=== PATIENT | male | born 1950 | race American Indian/Alaskan Native ===

== ENCOUNTER 2017-03-26 10:17 | Outpatient (CLI) | payer MEDICARE ==
[2017-03-26] MEDS ORDERED: XYLOCAINE TOPICAL 4% TP ONE ×2 (10:56→11:32)
== END 2017-03-26 10:18 | disposition home or self-care (01) ==
LOC: WOUND 10:17
PROVIDERS: ATTEND Surgery
DX: E11.622 Type 2 diabetes mellitus with other skin ulcer (principal); L97.821 Non-pressure chronic ulcer of other part of left lower leg limited to breakdown of skin; L97.811 Non-pressure chronic ulcer of other part of right lower leg limited to breakdown of skin; I25.10 Atherosclerotic heart disease of native coronary artery without angina pectoris; I25.2 Old myocardial infarction; M19.90 Unspecified osteoarthritis, unspecified site; I10 Essential (primary) hypertension; Z87.891 Personal history of nicotine dependence; Z86.73 Personal history of transient ischemic attack (TIA), and cerebral infarction without residual deficits; Z72.89 Other problems related to lifestyle
CPT/HCPCS: 11042; G0463

== ENCOUNTER 2017-04-02 10:58 | Outpatient (CLI) | payer MEDICARE ==
[2017-04-02] MEDS ORDERED: XYLOCAINE TOPICAL 4% TP ONE (11:52)
== END 2017-04-02 10:59 | disposition home or self-care (01) ==
LOC: WOUND 10:58
PROVIDERS: ATTEND Surgery
DX: E11.622 Type 2 diabetes mellitus with other skin ulcer (principal); L97.222 Non-pressure chronic ulcer of left calf with fat layer exposed; I25.10 Atherosclerotic heart disease of native coronary artery without angina pectoris; I25.2 Old myocardial infarction; M19.90 Unspecified osteoarthritis, unspecified site; I10 Essential (primary) hypertension; G81.90 Hemiplegia, unspecified affecting unspecified side; Z86.73 Personal history of transient ischemic attack (TIA), and cerebral infarction without residual deficits; Z87.891 Personal history of nicotine dependence; Z72.89 Other problems related to lifestyle

== ENCOUNTER 2017-04-09 11:24 | Outpatient (CLI) | payer MEDICARE ==
[2017-04-09] MEDS ORDERED: XYLOCAINE TOPICAL 4% TP SCH (12:39)
== END 2017-04-09 11:25 | disposition home or self-care (01) ==
LOC: WOUND 11:24
PROVIDERS: ATTEND Surgery
DX: E11.622 Type 2 diabetes mellitus with other skin ulcer (principal); L97.222 Non-pressure chronic ulcer of left calf with fat layer exposed; L97.811 Non-pressure chronic ulcer of other part of right lower leg limited to breakdown of skin; I10 Essential (primary) hypertension; I25.10 Atherosclerotic heart disease of native coronary artery without angina pectoris; I25.2 Old myocardial infarction; Z86.73 Personal history of transient ischemic attack (TIA), and cerebral infarction without residual deficits; M19.90 Unspecified osteoarthritis, unspecified site; Z87.891 Personal history of nicotine dependence

== ENCOUNTER 2017-04-16 10:41 | Outpatient (CLI) | payer MEDICARE ==
[2017-04-16] MEDS ORDERED: XYLOCAINE TOPICAL 4% TP ONE (11:40)
== END 2017-04-16 10:42 | disposition home or self-care (01) ==
LOC: WOUND 10:41
PROVIDERS: ATTEND Surgery
DX: E11.622 Type 2 diabetes mellitus with other skin ulcer (principal); L97.821 Non-pressure chronic ulcer of other part of left lower leg limited to breakdown of skin; L97.811 Non-pressure chronic ulcer of other part of right lower leg limited to breakdown of skin; I25.10 Atherosclerotic heart disease of native coronary artery without angina pectoris; I25.2 Old myocardial infarction; M19.90 Unspecified osteoarthritis, unspecified site; G81.90 Hemiplegia, unspecified affecting unspecified side; I10 Essential (primary) hypertension; Z86.73 Personal history of transient ischemic attack (TIA), and cerebral infarction without residual deficits; Z87.891 Personal history of nicotine dependence; Z72.89 Other problems related to lifestyle

== ENCOUNTER 2017-04-23 11:09 | Outpatient (CLI) | payer MEDICARE ==
[2017-04-23] MEDS ORDERED: XYLOCAINE TOPICAL 4% TP ONE (11:21)
== END 2017-04-23 11:10 | disposition home or self-care (01) ==
LOC: WOUND 11:09
PROVIDERS: ATTEND Surgery
DX: E11.622 Type 2 diabetes mellitus with other skin ulcer (principal); L97.222 Non-pressure chronic ulcer of left calf with fat layer exposed; L97.811 Non-pressure chronic ulcer of other part of right lower leg limited to breakdown of skin; I25.10 Atherosclerotic heart disease of native coronary artery without angina pectoris; I25.2 Old myocardial infarction; M19.90 Unspecified osteoarthritis, unspecified site; G81.90 Hemiplegia, unspecified affecting unspecified side; Z86.73 Personal history of transient ischemic attack (TIA), and cerebral infarction without residual deficits; Z87.891 Personal history of nicotine dependence; Z72.89 Other problems related to lifestyle

== ENCOUNTER 2017-04-30 11:03 | Outpatient (CLI) | payer MEDICARE ==
[2017-04-30] MEDS ORDERED: XYLOCAINE TOPICAL 4% TP ONE (11:22)
== END 2017-04-30 11:04 | disposition home or self-care (01) ==
LOC: WOUND 11:03
PROVIDERS: ATTEND Surgery
DX: E11.622 Type 2 diabetes mellitus with other skin ulcer (principal); L97.222 Non-pressure chronic ulcer of left calf with fat layer exposed; L97.811 Non-pressure chronic ulcer of other part of right lower leg limited to breakdown of skin; I10 Essential (primary) hypertension; I25.10 Atherosclerotic heart disease of native coronary artery without angina pectoris; I25.2 Old myocardial infarction; M19.90 Unspecified osteoarthritis, unspecified site; G81.90 Hemiplegia, unspecified affecting unspecified side; Z86.73 Personal history of transient ischemic attack (TIA), and cerebral infarction without residual deficits; Z87.891 Personal history of nicotine dependence; Z72.89 Other problems related to lifestyle

== ENCOUNTER 2017-05-07 11:17 | Outpatient (CLI) | payer MEDICARE ==
[2017-05-07] MEDS ORDERED: XYLOCAINE TOPICAL 4% TP ONE (12:00)
[2017-05-07] MEDS ORDERED: XYLOCAINE TOPICAL 2% TP ONE ×2 (12:02→13:00)
== END 2017-05-07 11:18 | disposition home or self-care (01) ==
LOC: WOUND 11:17
PROVIDERS: ATTEND Surgery
DX: E11.622 Type 2 diabetes mellitus with other skin ulcer (principal); L97.222 Non-pressure chronic ulcer of left calf with fat layer exposed; L97.811 Non-pressure chronic ulcer of other part of right lower leg limited to breakdown of skin; I25.10 Atherosclerotic heart disease of native coronary artery without angina pectoris; I25.2 Old myocardial infarction; M19.90 Unspecified osteoarthritis, unspecified site; G81.90 Hemiplegia, unspecified affecting unspecified side; I10 Essential (primary) hypertension; Z87.891 Personal history of nicotine dependence; Z72.89 Other problems related to lifestyle; Z86.73 Personal history of transient ischemic attack (TIA), and cerebral infarction without residual deficits

== ENCOUNTER 2017-05-14 11:03 | Outpatient (CLI) | payer MEDICARE ==
[2017-05-14] MEDS ORDERED: XYLOCAINE TOPICAL 4% TP ONE ×2 (11:45→12:16)
[2017-05-14] MEDS ORDERED: SILVER NITRATE TP ONE ×2 (12:03→13:00)
== END 2017-05-14 11:04 | disposition home or self-care (01) ==
LOC: WOUND 11:03
PROVIDERS: ATTEND Surgery
DX: E11.622 Type 2 diabetes mellitus with other skin ulcer (principal); L97.222 Non-pressure chronic ulcer of left calf with fat layer exposed; L97.811 Non-pressure chronic ulcer of other part of right lower leg limited to breakdown of skin; I25.10 Atherosclerotic heart disease of native coronary artery without angina pectoris; I25.2 Old myocardial infarction; I10 Essential (primary) hypertension; M19.90 Unspecified osteoarthritis, unspecified site; G81.90 Hemiplegia, unspecified affecting unspecified side; Z86.73 Personal history of transient ischemic attack (TIA), and cerebral infarction without residual deficits

== ENCOUNTER 2017-05-21 11:06 | Outpatient (CLI) | payer MEDICARE ==
[2017-05-21] MEDS ORDERED: XYLOCAINE TOPICAL 4% TP ONE (12:30)
== END 2017-05-21 11:07 | disposition home or self-care (01) ==
LOC: WOUND 11:06
PROVIDERS: ATTEND Surgery
DX: E11.622 Type 2 diabetes mellitus with other skin ulcer (principal); L97.811 Non-pressure chronic ulcer of other part of right lower leg limited to breakdown of skin; L97.222 Non-pressure chronic ulcer of left calf with fat layer exposed; I25.10 Atherosclerotic heart disease of native coronary artery without angina pectoris; I25.2 Old myocardial infarction; M19.90 Unspecified osteoarthritis, unspecified site; G81.90 Hemiplegia, unspecified affecting unspecified side; I10 Essential (primary) hypertension; Z86.73 Personal history of transient ischemic attack (TIA), and cerebral infarction without residual deficits; Z87.891 Personal history of nicotine dependence; Z72.89 Other problems related to lifestyle

== ENCOUNTER 2017-05-28 10:59 | Outpatient (CLI) | payer MEDICARE ==
[2017-05-28] MEDS ORDERED: XYLOCAINE TOPICAL 4% TP ONE ×2 (11:11→11:18)
== END 2017-05-28 11:00 | disposition home or self-care (01) ==
LOC: WOUND 10:59
PROVIDERS: ATTEND Surgery
DX: E11.622 Type 2 diabetes mellitus with other skin ulcer (principal); L97.222 Non-pressure chronic ulcer of left calf with fat layer exposed; L97.811 Non-pressure chronic ulcer of other part of right lower leg limited to breakdown of skin; I25.10 Atherosclerotic heart disease of native coronary artery without angina pectoris; I10 Essential (primary) hypertension; M19.90 Unspecified osteoarthritis, unspecified site; I25.2 Old myocardial infarction; G81.90 Hemiplegia, unspecified affecting unspecified side; E11.42 Type 2 diabetes mellitus with diabetic polyneuropathy; Z86.73 Personal history of transient ischemic attack (TIA), and cerebral infarction without residual deficits; Z87.891 Personal history of nicotine dependence

== ENCOUNTER 2017-06-11 11:22 | Outpatient (CLI) | payer MEDICARE ==
[2017-06-11] MEDS ORDERED: SILVER NITRATE TP ONE (15:41)
[2017-06-11] MEDS ORDERED: XYLOCAINE TOPICAL 4% TP ONE (15:41)
== END 2017-06-11 11:23 | disposition home or self-care (01) ==
LOC: WOUND 11:22
PROVIDERS: ATTEND Surgery
DX: E11.621 Type 2 diabetes mellitus with foot ulcer (principal); L97.222 Non-pressure chronic ulcer of left calf with fat layer exposed; L97.811 Non-pressure chronic ulcer of other part of right lower leg limited to breakdown of skin; I10 Essential (primary) hypertension; I25.10 Atherosclerotic heart disease of native coronary artery without angina pectoris; I25.2 Old myocardial infarction; M19.90 Unspecified osteoarthritis, unspecified site; G81.90 Hemiplegia, unspecified affecting unspecified side; Z87.891 Personal history of nicotine dependence; Z72.89 Other problems related to lifestyle; Z86.73 Personal history of transient ischemic attack (TIA), and cerebral infarction without residual deficits
CPT/HCPCS: 29581

== ENCOUNTER 2017-06-18 10:16 | Outpatient (CLI) | payer MEDICARE ==
[~2017-06-18 10:16] MED LIST: SILVER NITRATE TP ONE; XYLOCAINE TOPICAL 4% TP ONE
[2017-06-18] MEDS ORDERED: XYLOCAINE TOPICAL 4% TP ONE ×2 (11:54→12:03)
== END 2017-06-18 10:17 | disposition home or self-care (01) ==
LOC: WOUND 10:16
PROVIDERS: ATTEND Surgery
DX: E11.622 Type 2 diabetes mellitus with other skin ulcer (principal); L97.821 Non-pressure chronic ulcer of other part of left lower leg limited to breakdown of skin; L97.811 Non-pressure chronic ulcer of other part of right lower leg limited to breakdown of skin; I25.10 Atherosclerotic heart disease of native coronary artery without angina pectoris; I25.2 Old myocardial infarction; M19.90 Unspecified osteoarthritis, unspecified site; I10 Essential (primary) hypertension; Z87.891 Personal history of nicotine dependence; Z86.73 Personal history of transient ischemic attack (TIA), and cerebral infarction without residual deficits; Z72.89 Other problems related to lifestyle
CPT/HCPCS: 29581

== ENCOUNTER 2017-06-25 10:10 | Outpatient (CLI) | payer MEDICARE ==
[2017-06-25] MEDS ORDERED: XYLOCAINE TOPICAL 4% TP ONE ×2 (10:41→10:48)
== END 2017-06-25 10:11 | disposition home or self-care (01) ==
LOC: WOUND 10:10
PROVIDERS: ATTEND Surgery
DX: E11.622 Type 2 diabetes mellitus with other skin ulcer (principal); L97.811 Non-pressure chronic ulcer of other part of right lower leg limited to breakdown of skin; L97.222 Non-pressure chronic ulcer of left calf with fat layer exposed; I25.10 Atherosclerotic heart disease of native coronary artery without angina pectoris; I25.2 Old myocardial infarction; M19.90 Unspecified osteoarthritis, unspecified site; I10 Essential (primary) hypertension; G81.90 Hemiplegia, unspecified affecting unspecified side; Z86.73 Personal history of transient ischemic attack (TIA), and cerebral infarction without residual deficits; Z87.891 Personal history of nicotine dependence; Z72.89 Other problems related to lifestyle
CPT/HCPCS: 29581

== ENCOUNTER 2017-06-28 08:45 | Outpatient (CLI) | payer MEDICARE | END 2017-06-28 08:46 | disposition home or self-care (01) | LOC: WOUND 08:45 | PROVIDERS: ATTEND Podiatrist | DX: E11.622 Type 2 diabetes mellitus with other skin ulcer (principal); L97.821 Non-pressure chronic ulcer of other part of left lower leg limited to breakdown of skin; Z87.891 Personal history of nicotine dependence; Z72.89 Other problems related to lifestyle | CPT/HCPCS: 29581; G0463 ==

== ENCOUNTER 2017-07-04 09:17 | Outpatient (CLI) | payer MEDICARE ==
[2017-07-04] MEDS ORDERED: XYLOCAINE TOPICAL 4% TP ONE ×2 (09:35→09:55)
== END 2017-07-04 09:18 | disposition home or self-care (01) ==
LOC: WOUND 09:17
PROVIDERS: ATTEND Nurse Practitioner
DX: E11.622 Type 2 diabetes mellitus with other skin ulcer (principal); I70.232 Atherosclerosis of native arteries of right leg with ulceration of calf; L97.222 Non-pressure chronic ulcer of left calf with fat layer exposed; I25.10 Atherosclerotic heart disease of native coronary artery without angina pectoris; I25.2 Old myocardial infarction; M19.90 Unspecified osteoarthritis, unspecified site; G81.90 Hemiplegia, unspecified affecting unspecified side; Z87.891 Personal history of nicotine dependence; Z72.89 Other problems related to lifestyle; Z86.73 Personal history of transient ischemic attack (TIA), and cerebral infarction without residual deficits

== ENCOUNTER 2017-07-05 07:57 | Outpatient (CLI) | payer MEDICARE ==
--- NOTE | 2017-07-07 13:44 | Vascular Lab Report ---
LOWER EXTREMITY ARTERIAL PHYSIOLOGIC STUDY: REASON FOR EXAM: Lower extremity ulcerations. COMMENTS ON THE RIGHT: Ankle index is 0.90. This value is normal. Pulse volume recording at the level of the ankle is severely abnormal. Exercise testing was not done. COMMENTS ON THE LEFT: Ankle brachial index is 1.26. This value is normal. Pulse volume recording at the level of the ankle is normal. Exercise testing was not done. IMPRESSION: RIGHT: Ankle-brachial index is normal bipolar recording is severely abnormal. Clinical correlation recommended. Patient likely has significant arterial occlusive disease. LEFT:Ankle-brachial index is normal.
--- NOTE | 2017-07-07 13:46 | Vascular Lab Report ---
LOWER EXTREMITY ARTERIAL DUPLEX: REASON FOR EXAM: Peripheral arterial disease with ulcerations. COMMENTS ON THE RIGHT: Triphasic waveforms are seen proximally. Monophasic waveforms are seen distally. The mid superficial femoral artery appears to be significantly stenotic.. Plaque is seen in the mid superficial femoral artery. Findings are consistent with abnormal perfusion. Findings are not consistent with the ability to heal distal wounds. COMMENTS ON THE LEFT: Triphasic waveforms are seen proximally. Triphasic waveforms are seen distally. No significant velocity gradients are identified. Scattered plaque is seen throughout. Findings are consistent with normal perfusion. Findings are consistent with the ability to heal distal wounds. IMPRESSION: RIGHT: Severe stenosis or occlusion of the right superficial femoral artery. Recommend further evaluation. LEFT:Essentially normal arterial flow.
== END 2017-07-05 07:58 | disposition home or self-care (01) ==
LOC: VAS 07:57
PROVIDERS: ATTEND Nurse Practitioner
DX: I70.232 Atherosclerosis of native arteries of right leg with ulceration of calf (principal); L97.222 Non-pressure chronic ulcer of left calf with fat layer exposed; E08.42 Diabetes mellitus due to underlying condition with diabetic polyneuropathy; M79.661 Pain in right lower leg; M79.662 Pain in left lower leg; M79.89 Other specified soft tissue disorders
CPT/HCPCS: 93922; 93925; 93970

== ENCOUNTER 2017-07-05 11:15 | Outpatient (CLI) | payer MEDICARE | END 2017-07-05 11:16 | disposition home or self-care (01) | LOC: WOUND 11:15 | PROVIDERS: ATTEND Podiatrist | DX: E11.622 Type 2 diabetes mellitus with other skin ulcer (principal); I70.232 Atherosclerosis of native arteries of right leg with ulceration of calf; L97.811 Non-pressure chronic ulcer of other part of right lower leg limited to breakdown of skin; L97.222 Non-pressure chronic ulcer of left calf with fat layer exposed; I25.10 Atherosclerotic heart disease of native coronary artery without angina pectoris; I25.2 Old myocardial infarction; M19.90 Unspecified osteoarthritis, unspecified site; I10 Essential (primary) hypertension; Z86.73 Personal history of transient ischemic attack (TIA), and cerebral infarction without residual deficits; Z87.891 Personal history of nicotine dependence | CPT/HCPCS: 99214; G0463 ==

== ENCOUNTER 2017-07-16 09:10 | Outpatient (CLI) | payer MEDICARE ==
[2017-07-16] MEDS ORDERED: XYLOCAINE TOPICAL 4% TP ONE (09:49)
[2017-07-16] MEDS ORDERED: SILVER NITRATE TP ONE ×2 (10:42→12:37)
[2017-07-16] MEDS ORDERED: DAKIN'S FULL STRENGTH ONE (11:06)
[2017-07-17] MEDS ORDERED: DAKIN'S FULL STRENGTH TP ONE (08:18)
== END 2017-07-16 09:11 | disposition home or self-care (01) ==
LOC: WOUND 09:10
PROVIDERS: ATTEND Surgery
DX: E11.622 Type 2 diabetes mellitus with other skin ulcer (principal); L97.222 Non-pressure chronic ulcer of left calf with fat layer exposed; L97.212 Non-pressure chronic ulcer of right calf with fat layer exposed; I70.232 Atherosclerosis of native arteries of right leg with ulceration of calf; I10 Essential (primary) hypertension; I25.10 Atherosclerotic heart disease of native coronary artery without angina pectoris; I25.2 Old myocardial infarction; M19.90 Unspecified osteoarthritis, unspecified site; G81.90 Hemiplegia, unspecified affecting unspecified side; Z86.73 Personal history of transient ischemic attack (TIA), and cerebral infarction without residual deficits; Z87.891 Personal history of nicotine dependence; Z72.89 Other problems related to lifestyle

== ENCOUNTER 2017-07-23 10:56 | Outpatient (CLI) | payer MEDICARE ==
[2017-07-23] MEDS ORDERED: XYLOCAINE TOPICAL 4% TP ONE ×2 (11:32→11:35)
[2017-07-23] MEDS ORDERED: SILVER NITRATE TP ONE ×2 (12:07)
[2017-07-23] MEDS ORDERED: AD OINTMENT TP ONE (12:07)
[2017-07-24] MEDS ORDERED: AD OINTMENT TP SCH (10:00)
== END 2017-07-23 10:57 | disposition home or self-care (01) ==
LOC: WOUND 10:56
PROVIDERS: ATTEND Surgery
DX: E11.622 Type 2 diabetes mellitus with other skin ulcer (principal); L97.222 Non-pressure chronic ulcer of left calf with fat layer exposed; L97.211 Non-pressure chronic ulcer of right calf limited to breakdown of skin; I70.232 Atherosclerosis of native arteries of right leg with ulceration of calf; E11.42 Type 2 diabetes mellitus with diabetic polyneuropathy; I25.119 Atherosclerotic heart disease of native coronary artery with unspecified angina pectoris; I10 Essential (primary) hypertension; M19.90 Unspecified osteoarthritis, unspecified site; G81.90 Hemiplegia, unspecified affecting unspecified side; I25.2 Old myocardial infarction; Z86.73 Personal history of transient ischemic attack (TIA), and cerebral infarction without residual deficits; Z87.891 Personal history of nicotine dependence; Z72.89 Other problems related to lifestyle
CPT/HCPCS: A6250

== ENCOUNTER 2017-07-30 08:47 | Outpatient (CLI) | payer MEDICARE ==
[2017-07-30] MEDS ORDERED: XYLOCAINE TOPICAL 4% TP ONE (09:08)
== END 2017-07-30 08:48 | disposition home or self-care (01) ==
LOC: WOUND 08:47
PROVIDERS: ATTEND Surgery
DX: E11.622 Type 2 diabetes mellitus with other skin ulcer (principal); L97.222 Non-pressure chronic ulcer of left calf with fat layer exposed; L97.211 Non-pressure chronic ulcer of right calf limited to breakdown of skin; I70.232 Atherosclerosis of native arteries of right leg with ulceration of calf; E11.42 Type 2 diabetes mellitus with diabetic polyneuropathy; I25.119 Atherosclerotic heart disease of native coronary artery with unspecified angina pectoris; I10 Essential (primary) hypertension; M19.90 Unspecified osteoarthritis, unspecified site; G81.90 Hemiplegia, unspecified affecting unspecified side; I25.2 Old myocardial infarction; Z86.73 Personal history of transient ischemic attack (TIA), and cerebral infarction without residual deficits; Z87.891 Personal history of nicotine dependence; Z72.89 Other problems related to lifestyle

== ENCOUNTER 2017-08-13 08:40 | Outpatient (CLI) | payer MEDICARE ==
[2017-08-13] MEDS ORDERED: XYLOCAINE TOPICAL 4% TP ONE (09:01)
[2017-08-13] MEDS ORDERED: SILVER NITRATE TP ONE ×2 (09:46→12:02)
== END 2017-08-13 08:41 | disposition home or self-care (01) ==
LOC: WOUND 08:40
PROVIDERS: ATTEND Surgery
DX: I70.232 Atherosclerosis of native arteries of right leg with ulceration of calf (principal); E11.622 Type 2 diabetes mellitus with other skin ulcer; L97.222 Non-pressure chronic ulcer of left calf with fat layer exposed; L97.811 Non-pressure chronic ulcer of other part of right lower leg limited to breakdown of skin; I25.10 Atherosclerotic heart disease of native coronary artery without angina pectoris; I25.2 Old myocardial infarction; M19.90 Unspecified osteoarthritis, unspecified site; G81.90 Hemiplegia, unspecified affecting unspecified side; I10 Essential (primary) hypertension; Z86.73 Personal history of transient ischemic attack (TIA), and cerebral infarction without residual deficits; Z87.891 Personal history of nicotine dependence; Z72.89 Other problems related to lifestyle

== ENCOUNTER 2017-08-20 08:38 | Outpatient (CLI) | payer MEDICARE ==
[2017-08-20] MEDS ORDERED: XYLOCAINE TOPICAL 4% TP ONE (09:13)
[2017-08-20] MEDS ORDERED: INSTA-GLUCOSE GEL ONE (10:58)
[2017-08-20] MEDS ORDERED: INSTA-GLUCOSE GEL PO ONE (10:59)
== END 2017-08-20 08:39 | disposition home or self-care (01) ==
LOC: WOUND 08:38
PROVIDERS: ATTEND Surgery
DX: E11.622 Type 2 diabetes mellitus with other skin ulcer (principal); L97.222 Non-pressure chronic ulcer of left calf with fat layer exposed; I70.232 Atherosclerosis of native arteries of right leg with ulceration of calf; L97.811 Non-pressure chronic ulcer of other part of right lower leg limited to breakdown of skin; I25.10 Atherosclerotic heart disease of native coronary artery without angina pectoris; I25.2 Old myocardial infarction; M19.90 Unspecified osteoarthritis, unspecified site; G81.90 Hemiplegia, unspecified affecting unspecified side; I10 Essential (primary) hypertension; Z86.73 Personal history of transient ischemic attack (TIA), and cerebral infarction without residual deficits; Z87.891 Personal history of nicotine dependence; Z72.89 Other problems related to lifestyle
CPT/HCPCS: 82962

== ENCOUNTER 2017-08-20 11:45 | Emergency (ER) | payer MEDICARE ==
[2017-08-20 12:33] VITALS: BP 106/72
--- NOTE | 2017-08-20 15:46 | Emergency Department Report ---
ED General Adult HPI - General Chief complaint: Hypoglycemia Stated complaint: LOW BLOOD SUGAR Time Seen by Provider: 08/20/17 15:00 Source: patient Mode of arrival: Wheelchair Limitations: No Limitations - History of Present Illness Initial comments: Patient is a 66-year-old male past history of type 2 diabetes on long time insulin who presents with hypoglycemia. Patient took his insulin before eating breakfast and his blood sugar was 35. Patient did not pass out and did not lose any consciousness. He denies having any nausea or vomiting any chest pain any shortness of breath patient is eating in the waiting room and states that he is feeling "fine." Denies any fever or any sick contacts. - Related Data Home Medications Medication Instructions Recorded Confirmed Last Taken Multivitamin [Multi-Vitamin Daily] 1 tab PO DAILY 12/18/13 12/18/13 Unknown traMADol [Ultram 50 MG tab] 50 mg PO Q6HR PRN 12/18/13 12/18/13 Unknown Dutasteride/Tamsulosin HCl [Paula 1 tab PO QDAY 12/19/13 12/19/13 12/18/13 06:00 0.5-0.4 mg] 0.5-0.4 Previous Rx's Medication Instructions Recorded Last Taken Type Atorvastatin (Nf) [Lipitor] 10 mg PO DAILY #30 tablet 12/19/13 Unknown Rx Insulin NPH/Regular [NovoLIN 70/30] 60 unit SQ BID #10 ml 12/19/13 Unknown Rx Lisinopril [Zestril TAB] 40 mg PO QDAY #30 tablet 12/19/13 Unknown Rx Losartan [Cozaar] 50 mg PO QDAY #30 tablet 12/19/13 Unknown Rx Metoprolol [Lopressor TAB] 100 mg PO BID #60 tablet 12/19/13 Unknown Rx Spironolact/Hydrochlorothiazid 1 each PO DAILY #30 tablet 12/19/13 Unknown Rx [Aldactazide 25-25 Tablet] amLODIPine [Norvasc] 10 mg PO DAILY #30 tablet 12/19/13 Unknown Rx cloNIDine [Catapres] 0.3 mg PO TID #90 tablet 12/19/13 Unknown Rx Allergies Allergy/AdvReac Type Severity Reaction Status Date / Time No Known Allergies Allergy Verified 01/19/14 12:00 ED Review of Systems ROS: Stated complaint: LOW BLOOD SUGAR Other details as noted in HPI Constitutional: denies: chills, fever Eyes: denies: eye pain, eye discharge, vision change ENT: denies: ear pain, throat pain Respiratory: denies: cough, shortness of breath, wheezing Cardiovascular: denies: chest pain, palpitations Endocrine: no symptoms reported Gastrointestinal: denies: abdominal pain, nausea, diarrhea Genitourinary: denies: urgency, dysuria Musculoskeletal: denies: back pain, joint swelling, arthralgia Skin: denies: rash, lesions Neurological: denies: headache, weakness, paresthesias Psychiatric: denies: anxiety, depression Hematological/Lymphatic: denies: easy bleeding, easy bruising ED Past Medical Hx - Past Medical History Hx Hypertension: Yes Hx CVA: Yes (right sided weakness,walks with cane) Hx Diabetes: Yes Hx Arthritis: Yes Additional medical history: high cholesterol, bilateral LL wounds - Surgical History Additional Surgical History: pt doesn't remeber any surgeries - Social History Smoking Status: Never Smoker Substance Use Type: None - Medications Home Medications: Home Medications Medication Instructions Recorded Confirmed Last Taken Type Multivitamin [Multi-Vitamin Daily] 1 tab PO DAILY 12/18/13 12/18/13 Unknown History traMADol [Ultram 50 MG tab] 50 mg PO Q6HR PRN 12/18/13 12/18/13 Unknown History Atorvastatin (Nf) [Lipitor] 10 mg PO DAILY #30 tablet 12/19/13 Unknown Rx Dutasteride/Tamsulosin HCl [Paula 1 tab PO QDAY 12/19/13 12/19/13 12/18/13 06: 00 History 0.5-0.4 mg] 0.5-0.4 Insulin NPH/Regular [NovoLIN 70/30] 60 unit SQ BID #10 ml 12/19/13 Unknown Rx Lisinopril [Zestril TAB] 40 mg PO QDAY #30 tablet 12/19/13 Unknown Rx Losartan [Cozaar] 50 mg PO QDAY #30 tablet 12/19/13 Unknown Rx Metoprolol [Lopressor TAB] 100 mg PO BID #60 tablet 12/19/13 Unknown Rx Spironolact/Hydrochlorothiazid 1 each PO DAILY #30 tablet 12/19/13 Unknown Rx [Aldactazide 25-25 Tablet] amLODIPine [Norvasc] 10 mg PO DAILY #30 tablet 12/19/13 Unknown Rx cloNIDine [Catapres] 0.3 mg PO TID #90 tablet 12/19/13 Unknown Rx ED Physical Exam - General Limitations: No Limitations General appearance: alert, in no apparent distress - Head Head exam: Present: atraumatic, normocephalic - Eye Eye exam: Present: normal appearance - ENT ENT exam: Present: mucous membranes moist - Neck Neck exam: Present: normal inspection - Respiratory Respiratory exam: Present: normal lung sounds bilaterally. Absent: respiratory distress - Cardiovascular Cardiovascular Exam: Present: regular rate, normal rhythm. Absent: systolic murmur, diastolic murmur, rubs, gallop - GI/Abdominal GI/Abdominal exam: Present: soft, normal bowel sounds - Rectal Rectal exam: Present: deferred - Extremities Exam Extremities exam: Present: normal inspection - Back Exam Back exam: Present: normal inspection - Neurological Exam Neurological exam: Present: alert, oriented X3 - Psychiatric Psychiatric exam: Present: normal affect, normal mood - Skin Skin exam: Present: warm, dry, intact, normal color. Absent: rash ED Course Vital Signs 08/20/17 12:27 Temperature 98.5 F Pulse Rate 74 Respiratory 18 Rate Blood Pressure 106/72 O2 Sat by Pulse 97 Oximetry ED Medical Decision Making - Lab Data Lab Results 08/20/17 08/20/17 Range/Units 12:35 14:21 POC Glucose 157 H 259 H (70-105) - Medical Decision Making Cdx: Hypoglycemia 2/2 to insulin use ddx: Hypoglycemia 2/2 inadequate oral glucose, Hypoglycemia 2/2 overexertion I will give patient oral glucose challenge and evaluate for a couple of hours then do a repeat point of care sugar. Critical care attestation.: If time is entered above; I have spent that time in minutes in the direct care of this critically ill patient, excluding procedure time. ED Disposition Clinical Impression: Hypoglycemia, Diabetes education, encounter for Diabetes Qualifiers: Diabetes mellitus type: type 2 Diabetes mellitus complication status: with hypoglycemia Diabetes mellitus complication detail: without coma Diabetes mellitus manager long term care insulin use: with manager long term care use Qualified Code(s): E11.649 - Type 2 diabetes mellitus with hypoglycemia without coma; Z79.4 - halfway ( current) use of insulin Disposition: DC-01 TO HOME OR SELFCARE Is pt being admited?: No Does the pt Need Aspirin: No Condition: Stable Instructions: Diabetic Hypoglycemia (ED), Meal Planning with Diabetes Exchanges (DC), Diabetes Mellitus Type 2 in Adults (ED) Referrals: MERLE FIELDS MD [Referring] - 3-5 Days
== END 2017-08-20 15:42 | disposition home or self-care (01) ==
LOC: ED 11:45
DX: E11.649 Type 2 diabetes mellitus with hypoglycemia without coma (principal); I69.351 Hemiplegia and hemiparesis following cerebral infarction affecting right dominant side; I10 Essential (primary) hypertension; M19.90 Unspecified osteoarthritis, unspecified site; E78.00 Pure hypercholesterolemia, unspecified; Z79.4 Long term (current) use of insulin
CPT/HCPCS: 82962; 99283

== ENCOUNTER 2017-08-27 12:54 | Outpatient (CLI) | payer MEDICARE ==
[2017-08-27] MEDS ORDERED: XYLOCAINE TOPICAL 4% TP ONE (13:25)
== END 2017-08-27 12:55 | disposition home or self-care (01) ==
LOC: WOUND 12:54
PROVIDERS: ATTEND Surgery
DX: I70.232 Atherosclerosis of native arteries of right leg with ulceration of calf (principal); I70.248 Atherosclerosis of native arteries of left leg with ulceration of other part of lower leg; E11.622 Type 2 diabetes mellitus with other skin ulcer; L97.821 Non-pressure chronic ulcer of other part of left lower leg limited to breakdown of skin; L97.811 Non-pressure chronic ulcer of other part of right lower leg limited to breakdown of skin; I10 Essential (primary) hypertension; I25.10 Atherosclerotic heart disease of native coronary artery without angina pectoris; I25.2 Old myocardial infarction; M19.90 Unspecified osteoarthritis, unspecified site; G81.90 Hemiplegia, unspecified affecting unspecified side; Z86.73 Personal history of transient ischemic attack (TIA), and cerebral infarction without residual deficits; Z87.891 Personal history of nicotine dependence; Z72.89 Other problems related to lifestyle

== ENCOUNTER 2017-09-03 08:06 | Outpatient (CLI) | payer MEDICARE ==
[2017-09-03] MEDS ORDERED: XYLOCAINE TOPICAL 4% TP ONE (08:31)
== END 2017-09-03 08:07 | disposition home or self-care (01) ==
LOC: WOUND 08:06
PROVIDERS: ATTEND Surgery
DX: E11.622 Type 2 diabetes mellitus with other skin ulcer (principal); I70.232 Atherosclerosis of native arteries of right leg with ulceration of calf; L97.222 Non-pressure chronic ulcer of left calf with fat layer exposed; L97.811 Non-pressure chronic ulcer of other part of right lower leg limited to breakdown of skin; I25.10 Atherosclerotic heart disease of native coronary artery without angina pectoris; I25.2 Old myocardial infarction; M19.90 Unspecified osteoarthritis, unspecified site; G81.90 Hemiplegia, unspecified affecting unspecified side; I10 Essential (primary) hypertension; Z87.891 Personal history of nicotine dependence; Z86.73 Personal history of transient ischemic attack (TIA), and cerebral infarction without residual deficits

== ENCOUNTER 2017-09-10 08:06 | Outpatient (CLI) | payer MEDICARE ==
[2017-09-10] MEDS ORDERED: XYLOCAINE TOPICAL 4% TP ONE ×2 (08:23→08:34)
== END 2017-09-10 08:07 | disposition home or self-care (01) ==
LOC: WOUND 08:06
PROVIDERS: ATTEND Surgery
DX: E11.622 Type 2 diabetes mellitus with other skin ulcer (principal); I70.232 Atherosclerosis of native arteries of right leg with ulceration of calf; L97.222 Non-pressure chronic ulcer of left calf with fat layer exposed; L97.211 Non-pressure chronic ulcer of right calf limited to breakdown of skin; I25.10 Atherosclerotic heart disease of native coronary artery without angina pectoris; I25.2 Old myocardial infarction; M19.90 Unspecified osteoarthritis, unspecified site; G81.90 Hemiplegia, unspecified affecting unspecified side; I10 Essential (primary) hypertension; Z86.73 Personal history of transient ischemic attack (TIA), and cerebral infarction without residual deficits; Z87.891 Personal history of nicotine dependence

== ENCOUNTER 2017-09-17 08:19 | Outpatient (CLI) | payer MEDICARE ==
[2017-09-17] MEDS ORDERED: XYLOCAINE TOPICAL 4% TP ONE ×2 (08:29→09:07)
== END 2017-09-17 08:20 | disposition home or self-care (01) ==
LOC: WOUND 08:19
PROVIDERS: ATTEND Surgery
DX: E11.622 Type 2 diabetes mellitus with other skin ulcer (principal); L97.811 Non-pressure chronic ulcer of other part of right lower leg limited to breakdown of skin; I70.232 Atherosclerosis of native arteries of right leg with ulceration of calf; L97.222 Non-pressure chronic ulcer of left calf with fat layer exposed; I10 Essential (primary) hypertension; I25.10 Atherosclerotic heart disease of native coronary artery without angina pectoris; I25.2 Old myocardial infarction; M19.90 Unspecified osteoarthritis, unspecified site; G81.90 Hemiplegia, unspecified affecting unspecified side; Z87.891 Personal history of nicotine dependence; Z86.73 Personal history of transient ischemic attack (TIA), and cerebral infarction without residual deficits

== ENCOUNTER 2017-10-01 08:24 | Outpatient (CLI) | payer MEDICARE ==
[2017-10-01] MEDS ORDERED: XYLOCAINE TOPICAL 4% TP ONE ×5 (08:30→11:10)
[2017-10-01] MEDS ORDERED: NACL 0.9% 500 ML IR ONE (08:32)
== END 2017-10-01 08:25 | disposition home or self-care (01) ==
LOC: WOUND 08:24
PROVIDERS: ATTEND Surgery
DX: E11.622 Type 2 diabetes mellitus with other skin ulcer (principal); L97.222 Non-pressure chronic ulcer of left calf with fat layer exposed; I70.232 Atherosclerosis of native arteries of right leg with ulceration of calf; L97.811 Non-pressure chronic ulcer of other part of right lower leg limited to breakdown of skin; I25.10 Atherosclerotic heart disease of native coronary artery without angina pectoris; I25.2 Old myocardial infarction; M19.90 Unspecified osteoarthritis, unspecified site; G81.90 Hemiplegia, unspecified affecting unspecified side; I10 Essential (primary) hypertension; Z86.73 Personal history of transient ischemic attack (TIA), and cerebral infarction without residual deficits; Z87.891 Personal history of nicotine dependence

== ENCOUNTER 2017-10-08 08:22 | Outpatient (CLI) | payer MEDICARE ==
[2017-10-08] MEDS ORDERED: XYLOCAINE TOPICAL 4% TP ONE ×2 (09:14→13:17)
== END 2017-10-08 08:23 | disposition home or self-care (01) ==
LOC: WOUND 08:22
PROVIDERS: ATTEND Surgery
DX: E11.622 Type 2 diabetes mellitus with other skin ulcer (principal); I70.232 Atherosclerosis of native arteries of right leg with ulceration of calf; L97.811 Non-pressure chronic ulcer of other part of right lower leg limited to breakdown of skin; L97.222 Non-pressure chronic ulcer of left calf with fat layer exposed; I25.10 Atherosclerotic heart disease of native coronary artery without angina pectoris; I25.2 Old myocardial infarction; M19.90 Unspecified osteoarthritis, unspecified site; I10 Essential (primary) hypertension; G81.90 Hemiplegia, unspecified affecting unspecified side; Z86.73 Personal history of transient ischemic attack (TIA), and cerebral infarction without residual deficits; Z87.891 Personal history of nicotine dependence

== ENCOUNTER 2017-10-15 08:25 | Outpatient (CLI) | payer MEDICARE ==
[2017-10-15] MEDS ORDERED: XYLOCAINE TOPICAL 4% TP ONE ×2 (09:10)
== END 2017-10-15 08:26 | disposition home or self-care (01) ==
LOC: WOUND 08:25
PROVIDERS: ATTEND Surgery
DX: E11.622 Type 2 diabetes mellitus with other skin ulcer (principal); I70.232 Atherosclerosis of native arteries of right leg with ulceration of calf; L97.222 Non-pressure chronic ulcer of left calf with fat layer exposed; L97.821 Non-pressure chronic ulcer of other part of left lower leg limited to breakdown of skin; L97.811 Non-pressure chronic ulcer of other part of right lower leg limited to breakdown of skin; I25.10 Atherosclerotic heart disease of native coronary artery without angina pectoris; I25.2 Old myocardial infarction; M19.90 Unspecified osteoarthritis, unspecified site; I10 Essential (primary) hypertension; G81.90 Hemiplegia, unspecified affecting unspecified side; Z86.73 Personal history of transient ischemic attack (TIA), and cerebral infarction without residual deficits; Z87.891 Personal history of nicotine dependence

== ENCOUNTER 2017-10-22 08:40 | Outpatient (CLI) | payer MEDICARE ==
[2017-10-22] MEDS ORDERED: XYLOCAINE TOPICAL 4% TP ONE ×2 (09:07→09:09)
== END 2017-10-22 08:41 | disposition home or self-care (01) ==
LOC: WOUND 08:40
PROVIDERS: ATTEND Surgery
DX: I70.232 Atherosclerosis of native arteries of right leg with ulceration of calf (principal); E11.622 Type 2 diabetes mellitus with other skin ulcer; L97.222 Non-pressure chronic ulcer of left calf with fat layer exposed; L97.212 Non-pressure chronic ulcer of right calf with fat layer exposed; I25.10 Atherosclerotic heart disease of native coronary artery without angina pectoris; I25.2 Old myocardial infarction; I10 Essential (primary) hypertension; M19.90 Unspecified osteoarthritis, unspecified site; G81.90 Hemiplegia, unspecified affecting unspecified side; Z86.73 Personal history of transient ischemic attack (TIA), and cerebral infarction without residual deficits; Z87.891 Personal history of nicotine dependence

== ENCOUNTER 2017-10-29 08:42 | Outpatient (CLI) | payer MEDICARE ==
[2017-10-29] MEDS ORDERED: XYLOCAINE TOPICAL 4% TP ONE ×2 (08:56→09:02)
== END 2017-10-29 08:43 | disposition home or self-care (01) ==
LOC: WOUND 08:42
PROVIDERS: ATTEND Surgery
DX: E11.622 Type 2 diabetes mellitus with other skin ulcer (principal); L97.222 Non-pressure chronic ulcer of left calf with fat layer exposed; L97.212 Non-pressure chronic ulcer of right calf with fat layer exposed; I70.232 Atherosclerosis of native arteries of right leg with ulceration of calf; I25.10 Atherosclerotic heart disease of native coronary artery without angina pectoris; I25.2 Old myocardial infarction; M19.90 Unspecified osteoarthritis, unspecified site; I10 Essential (primary) hypertension; G81.90 Hemiplegia, unspecified affecting unspecified side; Z87.891 Personal history of nicotine dependence; Z86.73 Personal history of transient ischemic attack (TIA), and cerebral infarction without residual deficits

== ENCOUNTER 2017-11-12 09:24 | Outpatient (CLI) | payer MEDICARE ==
[2017-11-12] MEDS ORDERED: XYLOCAINE TOPICAL 4% TP ONE (09:51)
== END 2017-11-12 09:25 | disposition home or self-care (01) ==
LOC: WOUND 09:24
PROVIDERS: ATTEND Surgery
DX: I70.232 Atherosclerosis of native arteries of right leg with ulceration of calf (principal); E11.622 Type 2 diabetes mellitus with other skin ulcer; L97.212 Non-pressure chronic ulcer of right calf with fat layer exposed; L97.222 Non-pressure chronic ulcer of left calf with fat layer exposed; I10 Essential (primary) hypertension; I25.10 Atherosclerotic heart disease of native coronary artery without angina pectoris; I25.2 Old myocardial infarction; M19.90 Unspecified osteoarthritis, unspecified site; G81.90 Hemiplegia, unspecified affecting unspecified side; Z86.73 Personal history of transient ischemic attack (TIA), and cerebral infarction without residual deficits; Z87.891 Personal history of nicotine dependence

== ENCOUNTER 2017-11-19 08:08 | Outpatient (CLI) | payer MEDICARE ==
[2017-11-19] MEDS ORDERED: XYLOCAINE TOPICAL 4% TP ONE ×2 (08:16→08:28)
[2017-11-19] MEDS ORDERED: SILVER NITRATE TP ONE ×3 (08:46→10:00)
== END 2017-11-19 08:09 | disposition home or self-care (01) ==
LOC: WOUND 08:08
PROVIDERS: ATTEND Surgery
DX: E11.622 Type 2 diabetes mellitus with other skin ulcer (principal); I70.232 Atherosclerosis of native arteries of right leg with ulceration of calf; L97.222 Non-pressure chronic ulcer of left calf with fat layer exposed; L97.212 Non-pressure chronic ulcer of right calf with fat layer exposed; I10 Essential (primary) hypertension; I25.10 Atherosclerotic heart disease of native coronary artery without angina pectoris; I25.2 Old myocardial infarction; M19.90 Unspecified osteoarthritis, unspecified site; G81.90 Hemiplegia, unspecified affecting unspecified side; Z87.891 Personal history of nicotine dependence; Z86.73 Personal history of transient ischemic attack (TIA), and cerebral infarction without residual deficits

== ENCOUNTER 2017-11-26 08:30 | Outpatient (CLI) | payer MEDICARE ==
[2017-11-26] MEDS ORDERED: XYLOCAINE TOPICAL 4% TP ONE ×2 (08:52→08:54)
== END 2017-11-26 08:31 | disposition home or self-care (01) ==
LOC: WOUND 08:30
PROVIDERS: ATTEND Surgery
DX: I70.232 Atherosclerosis of native arteries of right leg with ulceration of calf (principal); E11.622 Type 2 diabetes mellitus with other skin ulcer; L97.222 Non-pressure chronic ulcer of left calf with fat layer exposed; L97.212 Non-pressure chronic ulcer of right calf with fat layer exposed; I10 Essential (primary) hypertension; I25.10 Atherosclerotic heart disease of native coronary artery without angina pectoris; I25.2 Old myocardial infarction; M19.90 Unspecified osteoarthritis, unspecified site; G81.90 Hemiplegia, unspecified affecting unspecified side; Z87.891 Personal history of nicotine dependence; Z86.73 Personal history of transient ischemic attack (TIA), and cerebral infarction without residual deficits

== ENCOUNTER 2017-12-03 08:49 | Outpatient (CLI) | payer MEDICARE ==
[2017-12-03] MEDS ORDERED: XYLOCAINE TOPICAL 4% TP ONE (09:29)
== END 2017-12-03 08:50 | disposition home or self-care (01) ==
LOC: WOUND 08:49
PROVIDERS: ATTEND Surgery
DX: I70.232 Atherosclerosis of native arteries of right leg with ulceration of calf (principal); E11.622 Type 2 diabetes mellitus with other skin ulcer; L97.222 Non-pressure chronic ulcer of left calf with fat layer exposed; L97.212 Non-pressure chronic ulcer of right calf with fat layer exposed; I10 Essential (primary) hypertension; I25.10 Atherosclerotic heart disease of native coronary artery without angina pectoris; I25.2 Old myocardial infarction; M19.90 Unspecified osteoarthritis, unspecified site; G81.90 Hemiplegia, unspecified affecting unspecified side; Z87.891 Personal history of nicotine dependence; Z86.73 Personal history of transient ischemic attack (TIA), and cerebral infarction without residual deficits
CPT/HCPCS: 29580

== ENCOUNTER 2017-12-10 08:37 | Outpatient (CLI) | payer MEDICARE ==
[2017-12-10] MEDS ORDERED: XYLOCAINE TOPICAL 4% TP ONE (08:49)
[2017-12-10] MEDS ORDERED: SILVER NITRATE TP ONE ×2 (09:55→15:36)
== END 2017-12-10 08:38 | disposition home or self-care (01) ==
LOC: WOUND 08:37
PROVIDERS: ATTEND Surgery
DX: E11.622 Type 2 diabetes mellitus with other skin ulcer (principal); I70.232 Atherosclerosis of native arteries of right leg with ulceration of calf; L97.222 Non-pressure chronic ulcer of left calf with fat layer exposed; L97.212 Non-pressure chronic ulcer of right calf with fat layer exposed; L97.811 Non-pressure chronic ulcer of other part of right lower leg limited to breakdown of skin; I10 Essential (primary) hypertension; I25.10 Atherosclerotic heart disease of native coronary artery without angina pectoris; I25.2 Old myocardial infarction; M19.90 Unspecified osteoarthritis, unspecified site; G81.90 Hemiplegia, unspecified affecting unspecified side; Z86.73 Personal history of transient ischemic attack (TIA), and cerebral infarction without residual deficits; Z87.891 Personal history of nicotine dependence
CPT/HCPCS: 29580

== ENCOUNTER 2017-12-17 08:30 | Outpatient (CLI) | payer MEDICARE ==
[2017-12-17] MEDS ORDERED: XYLOCAINE TOPICAL 4% TP ONE ×2 (08:56→09:28)
[2017-12-17] MEDS ORDERED: SILVER NITRATE TP ONE ×2 (09:34→10:36)
== END 2017-12-17 08:31 | disposition home or self-care (01) ==
LOC: WOUND 08:30
PROVIDERS: ATTEND Surgery
DX: I70.232 Atherosclerosis of native arteries of right leg with ulceration of calf (principal); E11.622 Type 2 diabetes mellitus with other skin ulcer; L97.222 Non-pressure chronic ulcer of left calf with fat layer exposed; L97.212 Non-pressure chronic ulcer of right calf with fat layer exposed; I10 Essential (primary) hypertension; I25.10 Atherosclerotic heart disease of native coronary artery without angina pectoris; I25.2 Old myocardial infarction; M19.90 Unspecified osteoarthritis, unspecified site; G81.90 Hemiplegia, unspecified affecting unspecified side; Z86.73 Personal history of transient ischemic attack (TIA), and cerebral infarction without residual deficits; Z87.891 Personal history of nicotine dependence
CPT/HCPCS: 29580

== ENCOUNTER 2017-12-23 08:25 | Outpatient (CLI) | payer MEDICARE ==
[2017-12-23] MEDS ORDERED: XYLOCAINE TOPICAL 4% TP ONE ×2 (08:42→09:08)
== END 2017-12-23 08:26 | disposition home or self-care (01) ==
LOC: WOUND 08:25
PROVIDERS: ATTEND Surgery
DX: I70.232 Atherosclerosis of native arteries of right leg with ulceration of calf (principal); E11.622 Type 2 diabetes mellitus with other skin ulcer; L97.222 Non-pressure chronic ulcer of left calf with fat layer exposed; L97.212 Non-pressure chronic ulcer of right calf with fat layer exposed; I10 Essential (primary) hypertension; I25.10 Atherosclerotic heart disease of native coronary artery without angina pectoris; I25.2 Old myocardial infarction; M19.90 Unspecified osteoarthritis, unspecified site; G81.90 Hemiplegia, unspecified affecting unspecified side; Z86.73 Personal history of transient ischemic attack (TIA), and cerebral infarction without residual deficits; Z87.891 Personal history of nicotine dependence
CPT/HCPCS: 29580

== ENCOUNTER 2017-12-31 09:38 | Outpatient (CLI) | payer MEDICARE ==
[2017-12-31] MEDS ORDERED: XYLOCAINE TOPICAL 4% TP ONE (09:39)
[2017-12-31] MEDS ORDERED: AD OINTMENT TP ONE (10:26)
== END 2017-12-31 09:39 | disposition home or self-care (01) ==
LOC: WOUND 09:38
PROVIDERS: ATTEND Surgery
DX: E11.622 Type 2 diabetes mellitus with other skin ulcer (principal); L97.811 Non-pressure chronic ulcer of other part of right lower leg limited to breakdown of skin; I25.10 Atherosclerotic heart disease of native coronary artery without angina pectoris; I25.2 Old myocardial infarction; M19.90 Unspecified osteoarthritis, unspecified site; I10 Essential (primary) hypertension; G81.90 Hemiplegia, unspecified affecting unspecified side; Z86.73 Personal history of transient ischemic attack (TIA), and cerebral infarction without residual deficits; Z87.891 Personal history of nicotine dependence
CPT/HCPCS: 29580; A6250

== ENCOUNTER 2018-01-07 08:56 | Outpatient (CLI) | payer MEDICARE ==
[2018-01-07] MEDS ORDERED: XYLOCAINE TOPICAL 4% TP ONE ×2 (08:57→09:04)
== END 2018-01-07 08:57 | disposition home or self-care (01) ==
LOC: WOUND 08:56
PROVIDERS: ATTEND Surgery
DX: I70.232 Atherosclerosis of native arteries of right leg with ulceration of calf (principal); L97.222 Non-pressure chronic ulcer of left calf with fat layer exposed; E11.622 Type 2 diabetes mellitus with other skin ulcer; L97.212 Non-pressure chronic ulcer of right calf with fat layer exposed; I25.10 Atherosclerotic heart disease of native coronary artery without angina pectoris; I25.2 Old myocardial infarction; I10 Essential (primary) hypertension; M19.90 Unspecified osteoarthritis, unspecified site; G81.90 Hemiplegia, unspecified affecting unspecified side; Z86.73 Personal history of transient ischemic attack (TIA), and cerebral infarction without residual deficits; Z87.891 Personal history of nicotine dependence
CPT/HCPCS: 29580

== ENCOUNTER 2018-01-14 08:48 | Outpatient (CLI) | payer MEDICARE | END 2018-01-14 08:49 | disposition home or self-care (01) | LOC: WOUND 08:48 | PROVIDERS: ATTEND Surgery | DX: I70.232 Atherosclerosis of native arteries of right leg with ulceration of calf (principal); L97.222 Non-pressure chronic ulcer of left calf with fat layer exposed; E11.622 Type 2 diabetes mellitus with other skin ulcer; L97.212 Non-pressure chronic ulcer of right calf with fat layer exposed; I25.10 Atherosclerotic heart disease of native coronary artery without angina pectoris; I25.2 Old myocardial infarction; I10 Essential (primary) hypertension; M19.90 Unspecified osteoarthritis, unspecified site; G81.90 Hemiplegia, unspecified affecting unspecified side; Z86.73 Personal history of transient ischemic attack (TIA), and cerebral infarction without residual deficits; Z87.891 Personal history of nicotine dependence | CPT/HCPCS: 29580 ==

== ENCOUNTER 2018-01-21 08:42 | Outpatient (CLI) | payer MEDICARE | END 2018-01-21 08:43 | disposition home or self-care (01) | LOC: WOUND 08:42 | PROVIDERS: ATTEND Surgery | DX: I70.232 Atherosclerosis of native arteries of right leg with ulceration of calf (principal); L97.222 Non-pressure chronic ulcer of left calf with fat layer exposed; E11.622 Type 2 diabetes mellitus with other skin ulcer; L97.212 Non-pressure chronic ulcer of right calf with fat layer exposed; I25.10 Atherosclerotic heart disease of native coronary artery without angina pectoris; I25.2 Old myocardial infarction; I10 Essential (primary) hypertension; M19.90 Unspecified osteoarthritis, unspecified site; G81.90 Hemiplegia, unspecified affecting unspecified side; Z86.73 Personal history of transient ischemic attack (TIA), and cerebral infarction without residual deficits; Z87.891 Personal history of nicotine dependence | CPT/HCPCS: 99214; G0463 ==

== ENCOUNTER 2020-10-04 14:13 | Emergency (ER) | payer MEDICARE ==
--- NOTE | 2020-10-04 17:02 | Emergency Department Report ---
ED General Adult HPI - General Chief complaint: Eye Problems Stated complaint: HIGH POTASSIUM Time Seen by Provider: 10/04/20 15:06 Source: patient Mode of arrival: Ambulatory Limitations: No Limitations - History of Present Illness Initial comments: Patient presents to the emergency department via EMS per request of his glove cutter for elevated potassium levels. Patient has history of chronic kidney disease and previous stroke. Patient states he has no complaints denying chest pain, shortness breath, or headache. -: unknown Severity scale (0 -10): 0 Consistency: constant Improves with: none Worsens with: none Associated Symptoms: denies other symptoms Treatments Prior to Arrival: none - Related Data Home Medications Medication Instructions Recorded Confirmed Last Taken Clopidogrel [Plavix] 75 mg PO QDAY 06/28/19 06/28/19 Unknown Spironolactone [Aldactone] 25 mg PO QDAY 06/28/19 06/28/19 Unknown amLODIPine 10 mg PO QDAY 06/28/19 06/28/19 Unknown cilostazoL [Pletal] 50 g PO BID 06/28/19 06/28/19 Unknown Humalog Mix 75-25 Vial 40 units SUB-Q QAM 07/01/19 07/01/19 Unknown Previous Rx's Medication Instructions Recorded Last Taken Type AtorvaSTATin [Lipitor] 40 mg PO QHS #30 tablet 07/02/19 Unknown Rx Metoprolol [Lopressor TAB] 25 mg PO Q8HR #90 tablet 07/02/19 Unknown Rx cloNIDine-TTS PATCH [Catapres-Tts 0.2 mg TD QWEEK #4 patch 07/02/19 Unknown Rx 0.2mg Patch] Aspirin 325 mg PO QDAY #30 tablet 07/08/19 Unknown Rx Allergies Allergy/AdvReac Type Severity Reaction Status Date / Time No Known Allergies Allergy Verified 01/19/14 12:00 ED Review of Systems ROS: Stated complaint: HIGH POTASSIUM Other details as noted in HPI Comment: All other systems reviewed and negative Constitutional: denies: chills, fever Eyes: denies: eye pain, eye discharge, vision change ENT: denies: ear pain, throat pain Respiratory: denies: cough, shortness of breath, wheezing Cardiovascular: denies: chest pain, palpitations Endocrine: no symptoms reported Gastrointestinal: denies: abdominal pain, nausea, diarrhea Genitourinary: denies: urgency, dysuria Musculoskeletal: denies: back pain, joint swelling, arthralgia Skin: denies: rash, lesions Neurological: denies: headache, weakness, paresthesias Psychiatric: denies: anxiety, depression Hematological/Lymphatic: denies: easy bleeding, easy bruising ED Past Medical Hx - Past Medical History Hx Hypertension: Yes Hx CVA: Yes (right sided weakness,walks with cane) Hx Diabetes: Yes Hx Arthritis: Yes Additional medical history: high cholesterol, bilateral LL wounds - Surgical History Additional Surgical History: pt doesn't remeber any surgeries - Social History Smoking Status: Never Smoker - Medications Home Medications: Home Medications Medication Instructions Recorded Confirmed Last Taken Type Clopidogrel [Plavix] 75 mg PO QDAY 06/28/19 06/28/19 Unknown History Spironolactone [Aldactone] 25 mg PO QDAY 06/28/19 06/28/19 Unknown History amLODIPine 10 mg PO QDAY 06/28/19 06/28/19 Unknown History cilostazoL [Pletal] 50 g PO BID 06/28/19 06/28/19 Unknown History Humalog Mix 75-25 Vial 40 units SUB-Q QAM 07/01/19 07/01/19 Unknown History AtorvaSTATin [Lipitor] 40 mg PO QHS #30 tablet 07/02/19 Unknown Rx Metoprolol [Lopressor TAB] 25 mg PO Q8HR #90 tablet 07/02/19 Unknown Rx cloNIDine-TTS PATCH [Catapres-Tts 0.2 mg TD QWEEK #4 patch 07/02/19 Unknown Rx 0.2mg Patch] Aspirin 325 mg PO QDAY #30 tablet 07/08/19 Unknown Rx ED Physical Exam - General Limitations: No Limitations General appearance: alert, in no apparent distress - Head Head exam: Present: atraumatic, normocephalic - Eye Eye exam: Present: normal appearance, PERRL, EOMI - ENT ENT exam: Present: mucous membranes moist - Neck Neck exam: Present: normal inspection - Respiratory Respiratory exam: Present: normal lung sounds bilaterally. Absent: respiratory distress - Cardiovascular Cardiovascular Exam: Present: regular rate, normal rhythm. Absent: systolic murmur, diastolic murmur, rubs, gallop - GI/Abdominal GI/Abdominal exam: Present: soft, normal bowel sounds. Absent: distended, tenderness - Rectal Rectal exam: Present: deferred - Extremities Exam Extremities exam: Present: normal inspection - Back Exam Back exam: Present: normal inspection - Neurological Exam Neurological exam: Present: alert, oriented X3, CN II-XII intact - Psychiatric Psychiatric exam: Present: normal affect, normal mood - Skin Skin exam: Present: warm, dry, intact, normal color. Absent: rash ED Course Vital Signs 10/04/20 10/04/20 10/04/20 15:09 15:16 15:25 Temperature 98.4 F Pulse Rate 77 Respiratory 22 Rate Blood Pressure 138/79 O2 Sat by Pulse 97 98 Oximetry 10/04/20 10/04/20 10/04/20 15:30 15:46 16:00 Temperature Pulse Rate 72 80 Respiratory 18 19 Rate Blood Pressure 132/82 139/80 139/80 O2 Sat by Pulse 98 97 98 Oximetry 10/04/20 10/04/20 10/04/20 16:20 16:31 16:46 Temperature Pulse Rate Respiratory Rate Blood Pressure 134/73 134/73 141/91 O2 Sat by Pulse 77 L Oximetry 10/04/20 10/04/20 10/04/20 17:00 17:16 17:31 Temperature Pulse Rate Respiratory Rate Blood Pressure 141/91 119/65 136/78 O2 Sat by Pulse 72 L Oximetry 10/04/20 10/04/20 10/04/20 17:46 18:02 18:13 Temperature Pulse Rate Respiratory 17 Rate Blood Pressure 128/74 149/78 O2 Sat by Pulse Oximetry ED Medical Decision Making - Lab Data Result diagrams: 10/04/20 16:50 10/04/20 16:50 Lab Results 10/04/20 10/04/20 10/04/20 Range/Units 16:50 16:50 16:50 WBC 8.2 (4.5-11.0) K/mm3 RBC 3.58 L (3.65-5.03) M/mm3 Hgb 9.8 L (11.8-15.2) gm/dl Hct 29.6 L (35.5-45.6) % MCV 83 L (84-94) fl MCH 27 L (28-32) pg MCHC 33 (32-34) % RDW 14.8 (13.2-15.2) % Plt Count 213 (140-440) K/mm3 Lymph % (Auto) 14.6 (13.4-35.0) % Spink % (Auto) 7.7 H (0.0-7.3) % Eos % (Auto) 2.4 (0.0-4.3) % Baso % (Auto) 0.9 (0.0-1.8) % Lymph # (Auto) 1.2 (1.2-5.4) K/mm3 Spink # (Auto) 0.6 (0.0-0.8) K/mm3 Eos # (Auto) 0.2 (0.0-0.4) K/mm3 Baso # (Auto) 0.1 (0.0-0.1) K/mm3 Seg Neutrophils % 74.4 H (40.0-70.0) % Seg Neutrophils # 6.1 (1.8-7.7) K/mm3 PT 15.7 H (12.2-14.9) Sec. INR 1.25 H (0.87-1.13) APTT 30.6 (24.2-36.6) Sec. Sodium 129 L (137-145) mmol/L Potassium 5.6 H (3.6-5.0) mmol/L Chloride 100.6 (98-107) mmol/L Carbon Dioxide 18 L (22-30) mmol/L Anion Gap 16 mmol/L BUN 32 H (9-20) mg/dL Creatinine 2.6 H (0.8-1.3) mg/dL Estimated GFR 30 ml/min BUN/Creatinine Ratio 12 % Glucose 90 (75-100) mg/dL Calcium 8.4 (8.4-10.2) mg/dL Magnesium 1.50 L (1.7-2.3) mg/dL Total Bilirubin 0.30 (0.1-1.2) mg/dL AST 13 (5-40) units/L ALT 12 (7-56) units/L Alkaline Phosphatase 71 (35-129) units/L Total Protein 7.4 (6.3-8.2) g/dL Albumin 3.5 L (3.9-5) g/dL Albumin/Globulin Ratio 0.9 % - Medical Decision Making Upon reviewing the patient's labs the patient's glove cutter was contacted. I spoke to Dr. Juan at approximately 6:38 PM and was instructed to give the patient a dose of Kayexalate and to be discharged home with follow-up with him in the next 1 to 2 days. Discussed the use of calcium chloride gluconate by Dr. Juan stated it was not indicated It was reported that the patient had a out patient potassium level greater than 6 thus the reasoning for him being sent to the hospital Critical care attestation.: If time is entered above; I have spent that time in minutes in the direct care of this critically ill patient, excluding procedure time. ED Disposition Clinical Impression: Hyperkalemia, Chronic kidney disease Disposition: DC- TO HOME OR SELFCARE Is pt being admited?: No Does the pt Need Aspirin: No Condition: Stable Instructions: Hyperkalemia Additional Instructions: Return if worse Referrals: PRIMARY CAREMD [Primary Care Provider] - 3-5 Days LYNN OLMOS MD [Staff Physician] - 3-5 Days Time of Disposition: 18:43
[2020-10-04 17:17] LABS: Basophils # (Auto) 0.1 K/mm3 (0.0-0.1); Basophils % (Auto) 0.9 % (0.0-1.8); Eosinophils # (Auto) 0.2 K/mm3 (0.0-0.4); Eosinophils % (Auto) 2.4 % (0.0-4.3); Hematocrit 29.6 % (35.5-45.6); Hemoglobin 9.8 gm/dl (11.8-15.2); Lymphocytes # (Auto) 1.2 K/mm3 (1.2-5.4); Lymphocytes % (Auto) 14.6 % (13.4-35.0); Mean Corpuscular HGB Conc 33 % (32-34); Mean Corpuscular Volume 83 fl (84-94); Monocytes # (Auto) 0.6 K/mm3 (0.0-0.8); Monocytes % (Auto) 7.7 % (0.0-7.3); Platelet Count 213 K/mm3 (140-440); Red Blood Count 3.58 M/mm3 (3.65-5.03); Red Cell Distribution Width 14.8 % (13.2-15.2)
[2020-10-04 17:24] LABS: Albumin 3.5 g/dL (3.9-5); Calcium 8.4 mg/dL (8.4-10.2)
[2020-10-04 17:45] LABS: INR 1.25 (0.87-1.13)
[2020-10-04 17:46] LABS: Partial Thromboplastin Time 30.6 Sec. (24.2-36.6)
[2020-10-04] MEDS ORDERED: SODIUM POLYSTYRENE 15 GM/60 ML ORAL LIQD PO ONE (18:39)
[2020-10-04 20:06] VITALS: BP 126/76
--- NOTE | 2020-10-06 11:31 | Electrocardiograph Report ---
[facility] Test Date: 2020-10-04 Test Time: 15:14:27 Pat Name: KWAN CLEMONS JR Department: Room: Gender: M Treasury Specialist: JORGE : 1950 Requested By: KELVIN MUÑOZ Order Number: [id number] Reading MD: Licha Herrera Measurements Intervals Duff Rate: 78 P: 2 WA: 188 QRS: -33 QRSD: 100 T: 25 QT: 386 QTc: 437 Interpretive Statements Sinus rhythm Atrial premature complex Probable anteroseptal infarct, old No previous ECG available for comparison Electronically Signed On 10-06-2020 11:31:04 EDT by Licha Herrera
== END 2020-10-04 20:00 | disposition home or self-care (01) ==
LOC: ED 14:13
DX: E87.5 Hyperkalemia (principal); N18.9 Chronic kidney disease, unspecified; E11.22 Type 2 diabetes mellitus with diabetic chronic kidney disease; I12.9 Hypertensive chronic kidney disease with stage 1 through stage 4 chronic kidney disease, or unspecified chronic kidney disease; E78.00 Pure hypercholesterolemia, unspecified; M19.90 Unspecified osteoarthritis, unspecified site; Z79.899 Other long term (current) drug therapy; Z86.73 Personal history of transient ischemic attack (TIA), and cerebral infarction without residual deficits
CPT/HCPCS: 36415; 80053; 83735; 85025; 85610; 85730; 93005

== ENCOUNTER 2022-02-07 07:38 | Day surgery (SDC) | payer MEDICARE ==
[~2022-02-07 07:38] MED LIST changes: +MIDAZOLAM 2 MG/2 ML INJ IV NR; -SILVER NITRATE TP ONE; +SODIUM CHLORIDE 0.9% 1000 ML 1,000 ML IV SCH; -XYLOCAINE TOPICAL 4% TP ONE; +ceFAZolin/STERILE WATER 2 GM/20 ML SYRINGE IV NR; +fentaNYL 100 MCG/2 ML INJ IV PRN
[2022-02-07] MEDS ORDERED: ROPIVACAINE/PF (0.5%) 5 MG/1 ML 30 ML VIAL ONE (08:24)
[2022-02-07] MEDS ORDERED: LIDOCAINE (1%) 10 MG/1 ML VIAL 20 ML MDV ONE (08:25)
--- NOTE | 2022-02-07 09:06 | Anesthesia Day of Surgery ---
Anesthesia Day of Surgery - Day of Surgery Patient Examined: Yes Patient H&P Reviewed: Yes Patient is NPO: Yes
--- NOTE | 2022-02-07 09:06 | Anesthesia Consultation ---
Anesthesia Consult and Med Hx Date of service: 02/07/22 - Airway Anesthetic Teeth Evaluation: Poor Mental/Hyoid Distance: Adequate Mallampati Class: Class III Intubation Access Assessment: Possibly Difficult - Pulmonary Exam CTA: Yes - Cardiac Exam Cardiac Exam: RRR - Pre-Operative Health Status ASA Pre-Surgery Classification: ASA4 Proposed Anesthetic Plan: MAC Nerve Block: supraclavicular - Pulmonary Hx Smoking: Yes (former smoker) Hx Respiratory Symptoms: No Hx Sleep Apnea: Yes (noted in chart though denies; no CPAP) - Cardiovascular System Hx Hypertension: Yes (took clonidine and metoprolol this morning) Hx Heart Attack/AMI: No Hx Percutaneous Transluminal Coronary Angioplasty (PTCA): No Hx Peripheral Vascular Disease: Yes (PAD with stents in leg; took brilinta this morning) - Central Nervous System CVA: Yes (x2; most recent 2020 with right sided weakness) - Endocrine Hx End Stage Renal Disease: Yes (last HD 02/06/22) Hx Liver Disease: No Hx Insulin Dependent Diabetes: Yes Hx Thyroid Disease: No - Additional Comments Anesthesia Medical History Comments: No hx anesthetic complications. is caregiver and signs consents.
[2022-02-07 10:24] LABS: Hematocrit 36.9 % (35.5-45.6); Red Blood Count 4.23 M/mm3 (3.65-5.03)
[2022-02-07 10:54] LABS: Calcium 8.6 mg/dL (8.4-10.2)
[2022-02-07] MEDS ORDERED: SODIUM CHLORIDE P/F VIAL 10 ML 10 ML ONE (11:11)
[2022-02-07] MEDS ORDERED: SODIUM CHLORIDE 0.9% 250ML 250 ML ONE (11:12)
[2022-02-07] MEDS ORDERED: rifAMPin 600 MG VIAL ONE (11:12)
[2022-02-07] MEDS ORDERED: SODIUM CHLORIDE 0.9% 500 ML 500 ML ONE (11:12)
[2022-02-07] MEDS ORDERED: HEPARIN 10,000 UNITS/10 ML VIAL ONE (11:12)
[2022-02-07] MEDS ORDERED: propofoL 200 MG/20 ML VIAL IV ONE ×2 (11:40→11:45)
[2022-02-07] MEDS ORDERED: MIDAZOLAM 2 MG/2 ML INJ ONE (11:48)
[2022-02-07] MEDS ORDERED: HYDROmorphone 0.5 MG/0.5 ML INJ ONE (11:49)
[2022-02-07] MEDS ORDERED: SODIUM CHLORIDE 0.9% IRR 1,500 ML BOTTLE IR ONE (12:12)
[2022-02-07] MEDS ORDERED: SODIUM CHLORIDE 0.9% 500 ML IVPB IRRIGATION ONE (12:13)
[2022-02-07] MEDS ORDERED: SODIUM CHLORIDE 0.9% 250 ML IVPB IV ONE (12:14)
[2022-02-07] MEDS ORDERED: SODIUM CHLORIDE 0.9% P/F 10 ML VIAL IV ONE (12:15)
[2022-02-07] MEDS ORDERED: rifAMPin 600 MG VIAL IV ONE (12:16)
[2022-02-07] MEDS ORDERED: HEPARIN 10,000 UNITS/10 ML VIAL IV ONE (12:17)
[2022-02-07] MEDS ORDERED: LIDOCAINE MPF (2%) 20 MG/1 ML VIAL 5 ML ONE (12:29)
--- NOTE | 2022-02-07 13:49 | Short Stay Summary ---
Short Stay Documentation Date of service: 02/07/22 Narrative H&P: See H&P - History H&P: obtained from office - Allergies and Medications Current Medications: Allergies No Known Allergies Allergy (Verified 01/31/22 17:25) Home Medications Medication Instructions Recorded Confirmed Last Taken Type amLODIPine 10 mg PO QDAY 06/28/19 01/31/22 Unknown History AtorvaSTATin [Lipitor] 40 mg PO QHS #30 tablet 07/02/19 01/31/22 Unknown Rx Aspirin 81 mg PO QDAY 01/31/22 01/31/22 Unknown History Ergocalciferol [Vitamin D2] 1 cap PO QWEEK 01/31/22 01/31/22 Unknown History Folic Acid/Vit B Complex and C 0.8 mg PO QDAY 01/31/22 01/31/22 Unknown History [Dialyvite 800 Tablet] Hydralazine HCl 50 mg PO BID 01/31/22 01/31/22 Unknown History Insulin Lispro [Admelog] 1 unit SQ PRN PRN 01/31/22 01/31/22 Unknown History Metoprolol [Lopressor TAB] 50 mg PO QDAY 01/31/22 01/31/22 02/07/22 05:00 History Tamsulosin [Flomax] 0.4 mg PO QDAY 01/31/22 01/31/22 Unknown History Ticagrelor [Brilinta] 90 mg PO BID 01/31/22 01/31/22 02/07/22 05:00 History calcitrioL [Rocaltrol] 0.25 mcg PO QDAY 01/31/22 01/31/22 Unknown History cloNIDine HCL [Clonidine HCl] 0.3 mg PO BID 01/31/22 01/31/22 02/07/22 05:00 History Active Medications Cefazolin Sodium (Cefazolin/Sterile Water 2 Gm/20 Ml Syringe) 2 gm IV PREOP NR Stop: 02/07/22 23:59 Fentanyl (Fentanyl 100 Mcg/2 Ml Inj) 100 mcg IV ONCE PRN PRN Reason: sedation for nerve block Stop: 02/07/22 23:59 Sodium Chloride (Nacl 0.9% 1000 Ml) 1,000 mls @ 42 mls/hr IV DIRECT DORON Stop: 02/07/22 23:59 Last Admin: 02/07/22 09:30 Dose: 42 mls/hr Midazolam HCl (Midazolam 2 Mg/2 Ml Inj) 2 mg IV PREOP NR Stop: 02/07/22 23:59 Last Admin: 02/07/22 11:02 Dose: 2 mg - Brief post op/procedure progress note Date of procedure: 02/07/22 Pre-op diagnosis: End-Stage Renal Disease Post-op diagnosis: same Procedure: Creation of Right Brachial Artery to Right Axillary Vein Arteriovenous Graft with 6 mm Bovine Artegraft Anesthesia: MAC, regional Surgeon: KELSEY WHITMAN Estimated blood loss: other (150 mL) Pathology: none Condition: stable - Disposition Condition at discharge: Good Disposition: 01 HOME / SELF CARE / HOMELESS Short Stay Discharge Plan Wound: remove dressing (Remove dressing in 48 hours), other (Once dressing is removed it is okay to wash the right arm incisions with soap and water but do not soak in water for 2 weeks.) Follow up with: KELSEY WHITMAN MD [Staff Physician] - 14 Days Prescriptions: HYDROcodone/APAP 5-325 [[place] 5/325] 1 each PO Q4HR PRN #40 tablet PRN Reason: Pain
--- NOTE | 2022-02-07 13:59 | Operative Report ---
Operative Report Operative Report: Date of procedure: 02/07/2022 Pre-operative diagnosis: End-Stage Renal Disease Post-operative diagnosis: Same Procedure(s): 1. Creation of Right brachial Artery to Right axillary Vein AV Graft with 6 mm Bovine Graft Artergraft Surgeon: Michael Will MD Day Trader: None Anesthesia: Regional/MAC EBL: Minimal Counts: Correct Complications: None Condition: Stable Findings: Successful Creation of Right Arm AV Graft with Palpable Thrill and Palpable Radial Pulse at the Completion of the Case. Specimen: None Indication: The patient is a 71-year-old male with history of end-stage renal disease and a stroke that has left his right arm weak and contracted. He is in need of permanent dialysis access and requires creation of an arteriovenous graft in his right upper extremity. He and his family were given the risk, benefits, and alternative procedures and consented to the procedure. Description of Procedure: Prior to being transported to the operating room the patient had a regional block of the right arm performed. After the block was performed the patient was transported to the operating room and adequately sedated. The patient's right arm was then prepped and draped in normal sterile fashion. A longitudinal incision was made on the medial aspect of the arm just proximal to the antecubital crease and carried down to the brachial artery using sharp dissection. The brachial artery was dissected out circumferentially both proximally and distally and controlled with vessel loops. A second incision was created in longitudinal fashion on the medial aspect of the arm just distal to the axillary crease and carried down to the axillary vein using sharp dissection. Axillary vein was dissected out circumferentially and controlled with a vessel loop. I then used a Rylee-Wick tunneler to tunnel from the brachial artery incision to the axillary vein incision and then pulled an 6 mm bovine through the tunnel. I infused with heparinized saline to ensure that it was not twisted or kinked. I put the brachial artery vessel loops on tension controlling the flow and then created an arteriotomy using an 11 blade and Mccoy scissors. I beveled the graft and created an end-to-side anastomosis using 6-0 Prolene running fashion. I clamped the graft just proximal to the anastomosis and then released the vessel loops restoring flow in the brachial artery. I placed quick clot in incision to achieve hemostasis. I cut the proximal end of the graft to the appropriate length and beveled the graft in preparation for a venous anastomosis. I controlled the axillary vein a Satinsky clamp and created a venotomy using an 11 blade and Mccoy scissors. I created an end to side an astomosis using a 6-0 Prolene in running fashion. Prior to completing the anastomosis I flushed the graft to ensure there was no thrombus and then completed the anastamosis. I released all clamps allowing flow into the AV graft which had an excellent thrill. I packed the wound with quick clot to achieve hemostasis. I closed both wounds in 2 layers using 3-0 Vicryl in running fashion in the deep dermal layer and 4-0 Monocryl in running fashion the subcuticular layer. I dressed both wounds with Dermabond. The patient tolerated the procedure well all sponge, needle, and instrument counts were correct. The patient was taken to recovery in stable condition.
--- NOTE | 2022-02-07 15:14 | Post Anesthesia Evaluation ---
- Post Anesthesia Evaluation Patient Participated: Yes Airway Patent: Yes Stable Respiratory Function: Yes Nausea/Vomiting: No Temp > 96.8F: Yes Pain Manageable: Yes Adequeate Hydration: Yes Anesthesia Complications: No
[2022-02-07 16:12] VITALS: BP 101/64
== END 2022-02-07 15:30 | disposition home or self-care (01) ==
LOC: OR 07:38
PROVIDERS: ATTEND Surgery Vascular Surgery
DX: I12.0 Hypertensive chronic kidney disease with stage 5 chronic kidney disease or end stage renal disease (principal); E11.22 Type 2 diabetes mellitus with diabetic chronic kidney disease; N18.6 End stage renal disease; E78.00 Pure hypercholesterolemia, unspecified; M19.90 Unspecified osteoarthritis, unspecified site; M10.9 Gout, unspecified; Z87.891 Personal history of nicotine dependence; Z79.899 Other long term (current) drug therapy; Z79.4 Long term (current) use of insulin; Z87.440 Personal history of urinary (tract) infections; Z98.890 Other specified postprocedural states; Z86.73 Personal history of transient ischemic attack (TIA), and cerebral infarction without residual deficits
CPT/HCPCS: 36415; 36830; 64415; 80048; 82962; 85027; C1757; C1768; J0690; J1170; J1644; J2250; J2704; J2795; J3490; J7030; J7040; J7050; 64450; J3010